=== PATIENT | male | born 1960 ===

== ENCOUNTER 2025-01-19 07:15 | Inpatient (IN) | payer OTHER ==
[~2025-01-19] VITALS: Ht 180.3 cm; Wt 88.5 kg
[2025-01-19] MEDS ORDERED: COZAAR50 MG PO (08:45)
[2025-01-19] MEDS ORDERED: PROSCAR5 MG PO (08:45)
[2025-01-19] MEDS ORDERED: GLIPIZIDE XL5 MG PO (08:45)
[2025-01-19] MEDS ORDERED: TAMS0.4C PO (08:46)
[2025-01-19 08:47] LABS: HEMATOCRIT 44.7 % (39.0-48.0); HEMOGLOBIN 15.3 g/dL (13-16.00); MEAN CELL VOLUME 82.3 fL (80.0-100.00); MEAN CORPUSCULAR HEMOGLOBIN 28.1 pg (27.00-32.0); MEAN CORPUSCULAR HGB CONC 34.1 g/dl (32.0-36.0); PLATELET COUNT 135 K/uL (150-450); RED BLOOD COUNT 5.43 M/uL (4.00-6.00); RED CELL DISTRIBUTION WIDTH 13.9 % (11.5-14.5)
[2025-01-19 08:52] VITALS: BP 140/72
[2025-01-19 09:10] LABS: PH,URINE 5.5 (5.0-8.0); URINE APPEARANCE Clear; URINE BILIRRUBIN Negative (NEGATIVE); URINE BLOOD Negative; URINE COLOR Yellow; URINE GLUCOSE Negative (NEGATIVE); URINE KETONE Negative (NEGATIVE); URINE LEUKOCYTE Negative; URINE NITRATE Negative; URINE PROTEIN Negative (NEGATIVE); URINE UROBILINOGEN 0.2 E.U./dl
[2025-01-19 09:12] LABS: COVID-19 AG NEGATIVE (NEGATIVE)
[2025-01-19 09:15] LABS: URINE WBC 3.7 uL (0.0-23.2)
[2025-01-19 09:23] LABS: PARTIAL THROMBOPLASTIN TIME 27.5 SECONDS (22.0-34.0); PROTHROMBIN TIME 10.9 SECONDS (9.0-11.5)
[2025-01-19 09:32] LABS: URINE BACTERIA 0 uL (0.0-1933); URINE EPITHELIAL CELLS 0.3 uL (0.0-38.8)
[2025-01-19 09:35] LABS: CALCIUM 9.2 mg/dL (8.5-10.1); CREATININE SERUM 0.81 mg/dL (0.70-1.30); GFR 95.34; POTASSIUM 4.1 mEq/L (3.5-5.1)
[2025-01-19 10:20] LABS: RH POSITIVE
[2025-01-25] MEDS ORDERED: CEFAZOLIN SODIUM 1,000 MG VIAL ONE (06:54)
[2025-01-25] MEDS ORDERED: ENOXAPARIN SODIUM 40 MG/0.4 ML SYRINGE SUBCUTANEO ONE (07:00)
[2025-01-25] MEDS ORDERED: SURGIFLO APPLICATOR 1 EACH APPL TOP ONE (07:00)
[2025-01-25] MEDS ORDERED: HEMOSTATIC MATRIX 1 KIT KIT TOP ONE (07:00)
[2025-01-25] MEDS ORDERED: BUPIVACAINE HCL/MPF 0.5% 30ML VIAL ONE (07:00)
[2025-01-25] MEDS ORDERED: SUGAMMADEX SODIUM 200 MG/2 ML VIAL IV ONE (09:04)
[2025-01-25] MEDS ORDERED: OxyCODONE HCL/APAP UD (PERCOCET) PO PRN (10:15)
[2025-01-25] MEDS ORDERED: ONDANSETRON HCL 2 MG/ML VIAL IV PRN (10:15)
[2025-01-25] MEDS ORDERED: RINGERS SOLUTION,LACTATED 1,000 ML IV SCH (10:15)
[2025-01-25] MEDS ORDERED: MORPHINE SULFATE 4 MG/ML CARTRIDGE IV PRN (10:15)
[2025-01-25] MEDS ORDERED: MORPHINE SULFATE 4 MG/ML VIAL IV ONE ×2 (11:20→11:50)
[2025-01-25 13:05] VITALS: BP 131/71; O2SAT 95
[2025-01-25] MEDS ORDERED: ACETAMINOPHEN 500 MG GEL..CAP PO PRN (14:45)
[2025-01-25] MEDS ORDERED: DEXTROSE 50 % IN WATER 0.5 G/ML VIAL IV PRN (14:45)
[2025-01-25] MEDS ORDERED: INSULIN LISPRO 1,000 UNIT/10 ML UNITS SUBCUTANEO PRN (14:45)
[2025-01-25 16:05] VITALS: BP 136/72; O2SAT 95
[2025-01-25] MEDS ORDERED: GABAPENTIN 300 MG CAPSULE PO SCH (17:00)
[2025-01-25] MEDS ORDERED: POLYETHYLENE GLYCOL 3350 17 GM BLIST.PACK PO SCH (17:00)
[2025-01-25 20:15] VITALS: BP 118/69; O2SAT 94
[2025-01-25] MEDS ORDERED: FAMOTIDINE/PF 20 MG/2 ML VIAL IV SCH (21:00)
[2025-01-25] MEDS ORDERED: CEFAZOLIN SODIUM 1,000 MG VIAL IV SCH (21:00)
[2025-01-26 01:16] VITALS: BP 129/72; O2SAT 100
[2025-01-26 06:34] LABS: HEMATOCRIT 38.5 % (39.0-48.0); HEMOGLOBIN 13.1 g/dL (13-16.00); MEAN CELL VOLUME 82.3 fL (80.0-100.00); RED BLOOD COUNT 4.68 M/uL (4.00-6.00); RED CELL DISTRIBUTION WIDTH 13.4 % (11.5-14.5)
[2025-01-26 06:35] LABS: PLATELET COUNT 120 K/uL (150-450)
[2025-01-26 07:00] LABS: CALCIUM 8.4 mg/dL (8.5-10.1); CREATININE SERUM 0.94 mg/dL (0.70-1.30); GFR 80.29; PHOSPHOROUS 2.8 mg/dL (2.5-4.9); POTASSIUM 4.35 mEq/L (3.5-5.1)
[2025-01-26 08:20] VITALS: BP 122/55; O2SAT 97
[2025-01-26] MEDS ORDERED: LOSARTAN POTASSIUM 50 MG TABLET PO SCH (09:00)
[2025-01-26] MEDS ORDERED: ENOXAPARIN SODIUM 40 MG/0.4 ML SYRINGE SUBCUTANEO SCH (09:00)
== END 2025-01-26 18:01 | disposition home or self-care (01) | DRG 718 ==
LOC: O/R 01-25 05:29 → SURG 01-25 05:29 → SURH 01-25 07:00 → SURG 01-25 12:15
PROVIDERS: ADMIT Urology; ATTEND Urology
PROC: 8E0W4CZ Robotic Assisted Procedure of Trunk Region, Percutaneous Endoscopic Approach (ICD-10-PCS; 2025-01-25)
PROC: 0VB04ZZ Excision of Prostate, Percutaneous Endoscopic Approach (ICD-10-PCS; principal; 2025-01-25 07:00)
DX: N40.1 Benign prostatic hyperplasia with lower urinary tract symptoms (principal)
CPT/HCPCS: 55867; S2900